=== PATIENT | male | born 2005 | race Caucasian/White ===

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

== ENCOUNTER 2023-06-18 16:59 | Emergency (ER) | payer BC ==
[~2023-06-18] VITALS: Ht 177.8 cm; Wt 99.8 kg
== END 2023-06-18 18:20 | disposition home or self-care (01) ==
LOC: ED 16:59
DX: T78.40XA Allergy, unspecified, initial encounter (principal); X58.XXXA Exposure to other specified factors, initial encounter